=== PATIENT | male | born 1990 | race Caucasian/White ===

== ENCOUNTER → 2016-07-28 15:22 | Emergency (ER) | payer SELFPAY ==
[2016-07-28 16:37] VITALS: BP 112/63
--- NOTE | 2016-07-28 16:40 | ED ---
Laceration/Wound HPI - HPI Summary HPI Summary: Patient was cutting carrots at home when he accidentally cut the tip off of his left index finger. He tried to control bleeding with compression but it continued to bleed. He is not sure if his tetanus is up to date. He is right handed. 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 Mechanism of Injury: Sharp/Blunt Trauma Onset/Duration: Sudden Onset Aggravating: Movement Alleviating: Compression Timing: Constant Onset Severity: Severe Current Severity: Moderate Pain Intensity: 5 Associated Signs & Symptoms: Pain Related Hx: Dominant Hand (Right) PMH/Surg Hx/FS Hx/Imm Hx Previously Healthy: Yes Infectious Disease History: No Infectious Disease History: Denies: Traveled Outside the [place] in Last 30 Days - Family History Known Family History: Positive: None - Social History Occupation: Employed Full-time Lives: With Family Alcohol Use: Occasionally Substance Use Type: Reports: None Smoking Status (MU): Never Smoked Tobacco Review of Systems Positive: Other - skin avulsion to left index finger tip Negative: Paresthesia, Numbness All Other Systems Reviewed And Are Negative: Yes Physical Exam Triage Information Reviewed: Yes Vital Signs On Initial Exam: Initial Vitals Temp Pulse Resp BP Pulse Ox 97.6 F 98 20 142/67 100 07/28/16 15:28 07/28/16 15:28 07/28/16 15:28 07/28/16 15:28 07/28/16 15:28 Vital Signs Reviewed: Yes Appearance: Positive: Well-Appearing, No Pain Distress, Well-Nourished Skin: Positive: Warm, Skin Color Reflects Adequate Perfusion, Dry, Tender - .5 cm skin avulsion to tip of left index finger tip, Soft Head/Face: Positive: Normal Head/Face Inspection Eyes: Positive: EOMI, CATARINO, Conjunctiva Clear ENT: Positive: Hearing grossly normal Respiratory/Lung Sounds: Positive: Breath Sounds Present Cardiovascular: Positive: RRR Musculoskeletal: Positive: Strength/ROM Intact, Pain @ - left index finger tip. Negative: Edema Left, Edema Right Neurological: Positive: Sensory/Motor Intact, Alert, Oriented to Person Place, Time, NV Bundle Intact Distally, Normal Gait Psychiatric: Positive: Affect/Mood Appropriate AVPU Assessment: Alert Diagnostics - Vital Signs Vital Signs Temp Pulse Resp BP Pulse Ox 07/28/16 15:28 97.6 F 98 20 142/67 100 - Laboratory Lab Statement: Any lab studies that have been ordered have been reviewed, and results considered in the medical decision making process. Laceration Repair Course/Dx - Differential Dx Differental Diagnoses: Abrasion, Avulsion, Cellulitis, Compartment Syndrome, Dehiscence, Hematoma, Laceration, Puncture Wound - Clinical Impression Provider Diagnoses: Avulsion of skin of index finger Discharge - Discharge Plan Condition: Stable Disposition: HOME Patient Education Materials: Skin Avulsion (ED) Forms: *Work Release Referrals: Venus Suárez MD [Primary Care Provider] - Additional Instructions: Keep your dressing clean, dry and in place for the next 48 hours. You may then remove and shower. You may need to soak in water to get dressing gently off. Pat dry and cover with a clean, dry band-aid if you are going to be in a "dirty " environment, otherwise it can remain open to air. Do not soak the wound in any body of water until it appears well healed. Elevate the hand above your heart and use Ibuprofen 600mg three times daily with meals for the next 3-5 days to reduce pain and swelling. Follow-up with your primary care provider with concerns or return to the emergency department sooner if your symptoms worsen.
== END | disposition home or self-care (01) ==
LOC: ED 15:22
DX: S61.201A Unspecified open wound of left index finger without damage to nail, initial encounter (principal); W26.0XXA Contact with knife, initial encounter; Y93.9 Activity, unspecified; Y92.9 Unspecified place or not applicable; Y99.9 Unspecified external cause status
CPT/HCPCS: 99281